=== PATIENT | female | born 1990 | race African-American/Black ===

== ENCOUNTER 2017-01-13 23:36 | Emergency (ER) | payer OTHER ==
[~2017-01-13] VITALS: Ht 172.7 cm; Wt 104.5 kg
[2017-01-14 00:21] VITALS: BP 139/79
== END 2017-01-14 00:32 | disposition home or self-care (01) ==
LOC: EMS 23:37
DX: J01.90 Acute sinusitis, unspecified (principal)
CPT/HCPCS: 99283